=== PATIENT | male | born 1950 | race Caucasian/White ===

== ENCOUNTER → 2018-03-06 12:53 | Outpatient (CLI) | payer OTHER, MEDICARE, SELFPAY ==
--- NOTE | 2018-03-06 | DI.MRI.S_ITS ---
PROCEDURE: MR LUMBAR SPINE WO CON INDICATIONS: LUMBAR RADICULOPATHY TECHNIQUE: Noncontrast sagittal T1 spin echo and T2 fast echo, sagittal STIR, axial T1 and T2 fast spin echo through the lumbar spine. In cases with scoliosis, additional coronal T2 fast spin echo may be performed. COMPARISON: [facility], MR, MR LUMBAR SPINE WITHOUT CONTRAST, 02/29/2012, 19:02. [facility], MR, MR LUMBAR SPINE WITHOUT CONTRAST, 03/06/2012, 9:21. [facility], CR, XR LUMBAR SPINE WITH OLBIQUES PLUS FLEXION EXTENSION, 02/22/2018, 10:35. FINDINGS: Image quality: Excellent. Alignment and Curvature: 5 lumbar type vertebral bodies are present by plain film. There is transitional anatomy at S1. There is mild, grade 1 retrolisthesis of L2 on L3, L3 on L4, and L5 on S1. Bone Marrow: Marrow is of normal overall signal. No acute vertebral body compression fractures. Spinal Cord: Conus medullaris terminates at the mid L2 level. Visualized cord demonstrates normal signal and size. Paraspinous Soft Tissues: No paravertebral masses. L1-L2: Mild bilateral facet hypertrophy. No significant canal, nor foraminal stenosis. L2-L3: Mild diffuse disc bulge. Mild bilateral facet hypertrophy. Mild canal stenosis. No foraminal stenosis. No change. L3-L4: Mild diffuse disc bulge. Mild bilateral facet and ligamentum flavum hypertrophy. Mild canal stenosis. Mild bilateral foraminal stenosis. No change. L4-L5: Mild disc height loss and desiccation. Mild diffuse disc bulge with small superimposed broad-based left posterolateral protrusion. Mild bilateral facet and ligamentum flavum hypertrophy. Mild canal stenosis. Mild to moderate left foraminal stenosis. Mild right foraminal stenosis. Possible mild flattening deformity of the left L4 nerve root lateral to the neural foramen, new since the prior examination. L5-S1: Mild disc height loss and desiccation. Mild diffuse disc bulge. Central annular tear. Mild bilateral facet hypertrophy. Mild canal stenosis. Mild bilateral foraminal stenosis. IMPRESSION: 1. Multilevel degenerative disc and facet disease, as well as ligamentum flavum hypertrophy. 2. Mild multilevel canal stenoses. 3. Multilevel foraminal stenoses, worst at L4-L5 on the left, where there is mild to moderate foraminal stenosis. There is possible mild flattening deformity of the left L4 nerve root just lateral to the neural foramen. Recommend correlation with clinical symptoms to ascertain relevance of this finding. Dictated by: Fredy Lares M.D. on 03/06/2018 at 14:20 Approved by: Fredy Lares M.D. on 03/06/2018 at 14:35
== END ==
PROVIDERS: Family Provider Specialist; PCP Specialist; Visit Provider Physical Medicine & Rehabilitation
DX: M51.16 Intervertebral disc disorders with radiculopathy, lumbar region (principal); M51.17 Intervertebral disc disorders with radiculopathy, lumbosacral region; M48.061 Spinal stenosis, lumbar region without neurogenic claudication; M48.07 Spinal stenosis, lumbosacral region
CPT/HCPCS: 72148